=== PATIENT | female | born 1965 | race Hispanic/Latino ===

== ENCOUNTER 2018-02-27 23:13 | Emergency (ER) | payer BC ==
--- NOTE | 2018-02-27 23:58 | EDPHYS ---
Physician Documentation [facility] Name: Shilpi Jeffers Age: 52 yrs Sex: Female : 1965 Arrival Date: 02/27/2018 Time: 23:14 Bed 15 Private MD: ED Physician Ramo Thompson HPI: 02/27 23:52 This 52 yrs old Female presents to ER via Ambulatory with complaints of LT ARM jorge SWELLING. 23:52 The patient or guardian complains of decreased range of motion, pain. The complaints jorge affect the left tricep, left elbow and palmar aspect of left forearm. Context: The problem was sustained at a bite. Onset: The symptoms/episode began/occurred 2 day(s) ago. Treatment prior to arrival includes: no previous treatment. Modifying factors: The symptoms are alleviated by remaining still, the symptoms are aggravated by movement, bending arm. Associated signs and symptoms: The patient has no apparent associated signs or symptoms. Severity of symptoms: At their worst the symptoms were mild. The patient has not experienced similar symptoms in the past. 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 - Social history:: Smoking status: Patient/guardian denies using tobacco. - Ebola Screening: : No symptoms or risks identified at this time. - Family history:: not pertinent. ROS: 23:52 Constitutional: Negative for fever, chills, and weight loss, Eyes: Negative for injury, jorge pain, redness, and discharge, ENT: Negative for injury, pain, and discharge, Neck: Negative for injury, pain, and swelling, Cardiovascular: Negative for chest pain, palpitations, and edema, Respiratory: Negative for shortness of breath, cough, wheezing, and pleuritic chest pain, Abdomen/GI: Negative for abdominal pain, nausea, vomiting, diarrhea, and constipation, Back: Negative for injury and pain, : Negative for injury, bleeding, discharge, and swelling, Neuro: Negative for headache, weakness, numbness, tingling, and seizure, Psych: Negative for depression, anxiety, suicide ideation, homicidal ideation, and hallucinations, Allergy/Immunology: Negative for hives, rash, and allergies, Endocrine: Negative for neck swelling, polydipsia, polyuria, polyphagia, and marked weight changes, Hematologic/Lymphatic: Negative for swollen nodes, abnormal bleeding, and unusual bruising. 23:52 MS/extremity: Positive for erythema, pain, swelling, tenderness, warmth, of the left tricep, left elbow and palmar aspect of left forearm. Exam: 23:52 Constitutional: This is a well developed, well nourished patient who is awake, alert, jorge and in no acute distress. Head/Face: Normocephalic, atraumatic. Eyes: Pupils equal round and reactive to light, extra-ocular motions intact. Lids and lashes normal. Conjunctiva and sclera are non-icteric and not injected. Cornea within normal limits. Periorbital areas with no swelling, redness, or edema. ENT: Nares patent. No nasal discharge, no septal abnormalities noted. Tympanic membranes are normal and external auditory canals are clear. Oropharynx with no redness, swelling, or masses, exudates, or evidence of obstruction, uvula midline. Mucous membranes moist. Neck: Trachea midline, no thyromegaly or masses palpated, and no cervical lymphadenopathy. Supple, full range of motion without nuchal rigidity, or vertebral point tenderness. No Meningismus. Chest/axilla: Normal chest wall appearance and motion. Nontender with no deformity. No lesions are appreciated. Cardiovascular: Regular rate and rhythm with a normal S1 and S2. No gallops, murmurs, or rubs. Normal PMI, no JVD. No pulse deficits. Respiratory: Lungs have equal breath sounds bilaterally, clear to auscultation and percussion. No rales, rhonchi or wheezes noted. No increased work of breathing, no retractions or nasal flaring. Abdomen/GI: Soft, non-tender, with normal bowel sounds. No distension or tympany. No guarding or rebound. No evidence of tenderness throughout. Back: No spinal tenderness. No costovertebral tenderness. Full range of motion. Neuro: Awake and alert, GCS 15, oriented to person, place, time, and situation. Cranial nerves II-XII grossly intact. Motor strength 5/5 in all extremities. Sensory grossly intact. Cerebellar exam normal. Normal gait. Psych: Awake, alert, with orientation to person, place and time. Behavior, mood, and affect are within normal limits. 23:52 Skin: cellulitis, that is minimal, induration, that is mild is noted, injury, bite(s), superficial, lesion(s), are not present. Vital Signs: 23:32 BP 144 / 103; Pulse 81; Resp 18; Temp 97.8; Pulse Ox 98% on R/A; Weight 63.5 kg; Height ea 4 ft. 9 in. (144.78 cm); Pain 2/10; 23:32 Body Mass Index 30.30 (63.50 kg, 144.78 cm) ea MDM: 23:28 Patient medically screened. [facility] 23:56 Data reviewed: vital signs, nurses notes. [facility] Administered Medications: 23:59 Drug: Benadryl 25 mg Route: PO; ea 23:59 Drug: predniSONE 40 mg Route: PO; ea 23:59 Drug: Doxycycline 200 mg Route: PO; ea 23:59 Drug: Bactrim (160 mg-800 mg (DS) 1 tablet Route: PO; ea 23:59 Drug: Pepcid 40 mg Route: PO; ea Disposition: 02/27/18 23:57 Discharged to Home. Impression: Insect bite (nonvenomous) of forearm, Cellulitis and acute lymphangitis of other parts of limb. - Condition is Stable. - Discharge Instructions: Insect Bite, [id number], Insect Bite, Cellulitis, Adult, [id number]. - Prescriptions for Benadryl 25 mg Oral Capsule - take 1 capsule by ORAL route every 6 hours As needed; 30 tablet. Pepcid 20 mg Oral Tablet - take 1 tablet by ORAL route every 12 hours for 10 days; 20 tablet. Doxycycline Hyclate 100 mg Oral Tablet - take 1 tablet by ORAL route every 12 hours; 20 tablet. Bactrim DS 800- 160 mg Oral Tablet - take 1 tablet by ORAL route every 12 hours for 10 days; 20 tablet. Prednisone 20 mg Oral Tablet - take 2 tablets by ORAL route once daily for 3 days; 6 tablet. - Medication Reconciliation Form, Thank You Letter, Antibiotic Education, Prescription Opioid Use form. - Follow up: Private Physician; When: 2 - 3 days; Reason: Recheck today's complaints, Continuance of care, Re-evaluation by your physician. - Problem is new. - Symptoms have improved. Signatures: Ramo Thompson MD MD cha Antunez, Elena, RN RN ea Corrections: (The following items were deleted from the chart) 02/28 00:23 02/27 23:57 02/27/2018 23:57 Discharged to Home. Impression: Insect bite (nonvenomous) ea of forearm; Cellulitis and acute lymphangitis of other parts of limb. Condition is Stable. Forms are Medication Reconciliation Form, Thank You Letter, Antibiotic Education, Prescription Opioid Use. Follow up: Private Physician; When: 2 - 3 days; Reason: Recheck today's complaints, Continuance of care, Re-evaluation by your physician. Problem is new. Symptoms have improved. jorge
--- NOTE | 2018-02-27 23:58 | ER ---
Nurse's Notes [facility] Name: Shilpi Jeffers Age: 52 yrs Sex: Female : 1965 Arrival Date: 02/27/2018 Time: 23:14 Bed 15 Private MD: Diagnosis: Insect bite (nonvenomous) of forearm;Cellulitis and acute lymphangitis of other parts of limb Presentation: 02/27 23:32 Presenting complaint: Patient states: Swelling and redness to the left elbow that ea started yesterday, pt states "The swelling started yesterday but about an hour ago my throat felt tight and I noticed my elbow got worse" Pt denies SOB. Reports she may have been bitten by an insect. Transition of care: patient was not received from another setting of care. Onset of symptoms was February 27, 2018. Risk Assessment: Do you want to hurt yourself or someone else? Patient reports no desire to harm self or others. Initial Sepsis Screen: Does the patient meet any 2 criteria? No. Patient's initial sepsis screen is negative. Does the patient have a suspected source of infection? Yes: Other: redness and swelling noted to left elbow. Care prior to arrival: None. 23:32 Method Of Arrival: Ambulatory ea 23:32 Acuity: NIKKI 3 ea Triage Assessment: 23:37 General: Appears uncomfortable, Behavior is calm, cooperative. Pain: Complains of pain ea in left bicep, left antecubital area and dorsal aspect of left forearm Pain does not radiate. Pain currently is 2 out of 10 on a pain scale. Quality of pain is described as "tight" Pain began yesterday. EENT: No signs and/or symptoms were reported regarding the EENT system. Neuro: Level of Consciousness is awake, alert, obeys commands, Oriented to person, place, time, situation. Cardiovascular: Patient's skin is warm and dry. Respiratory: Airway is patent Respiratory effort is even, unlabored, Respiratory pattern is regular, symmetrical, Breath sounds are clear bilaterally. Denies shortness of breath. GI: No signs and/or symptoms were reported involving the gastrointestinal system. : No signs and/or symptoms were reported regarding the genitourinary system. Derm: redness and swelling noted to left elbow, forearm and upper arm. Papule noted to left elbow. 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 - Social history:: Smoking status: Patient/guardian denies using tobacco. - Ebola Screening: : No symptoms or risks identified at this time. - Family history:: not pertinent. Screenin:44 Abuse screen: Denies threats or abuse. Nutritional screening: No deficits noted. ea Tuberculosis screening: No symptoms or risk factors identified. Fall Risk None identified. Assessment: 23:32 Reassessment: see triage assessment. ea Vital Signs: 23:32 BP 144 / 103; Pulse 81; Resp 18; Temp 97.8; Pulse Ox 98% on R/A; Weight 63.5 kg; Height ea 4 ft. 9 in. (144.78 cm); Pain 2/10; 23:32 Body Mass Index 30.30 (63.50 kg, 144.78 cm) ea ED Course: 23:14 Patient arrived in ED. ds1 23:27 Ramo Thompson MD is Attending Physician. [facility] 23:32 Camille Chowdhury, MIGUEL is Primary Nurse. ea 23:32 Arm band placed on right wrist. Patient placed in an exam room, on a stretcher, on ea pulse oximetry. 23:35 Triage completed. ea 23:44 Patient has correct armband on for positive identification. Bed in low position. Call ea light in reach. Side rails up X 1. Administered Medications: 23:59 Drug: Benadryl 25 mg Route: PO; ea 23:59 Drug: predniSONE 40 mg Route: PO; ea 23:59 Drug: Doxycycline 200 mg Route: PO; ea 23:59 Drug: Bactrim (160 mg-800 mg (DS) 1 tablet Route: PO; ea 23:59 Drug: Pepcid 40 mg Route: PO; ea Outcome: 23:57 Discharge ordered by . jorge 02/28 00:23 Patient left the ED. ea Signatures: Ramo Thompson MD MD cha Sanford, Demi ds1 Camille Chowdhury, MIGUEL RN ea
[2018-02-28] MEDS ORDERED: FAMOTIDINE 20 MG TAB ONE (00:01)
[2018-02-28] MEDS ORDERED: DIPHENHYDRAMINE 25 MG TAB/CAP ONE (00:01)
[2018-02-28] MEDS ORDERED: SMZ./TMP. 800/160 MG TABLET ONE (00:01)
[2018-02-28] MEDS ORDERED: predniSONE 20 MG TAB ONE (00:01)
[2018-02-28] MEDS ORDERED: DOXYCYCLINE 100 MG CAP PO ONE (00:02)
== END 2018-02-28 00:23 | disposition home or self-care (01) ==
LOC: ER 23:13
DX: L03.114 Cellulitis of left upper limb (principal); L03.124 Acute lymphangitis of left upper limb; E78.5 Hyperlipidemia, unspecified; E03.9 Hypothyroidism, unspecified
CPT/HCPCS: 99283; J7512

== ENCOUNTER 2019-05-21 18:49 | Observation (INO) | payer BC ==
[2019-05-21 19:31] LABS: Absolute Lymphocytes (CBC) 6.7 K/uL (0.7-4.9); Hematocrit 38.4 % (36.0-45.0); Lymphocytes % 50.8 % (15.3-44.8); MPV 9.7 fL (7.6-11.3); RBC Red Blood Cell Count 4.19 M/uL (3.86-4.86)
[2019-05-21 19:34] LABS: Protime INR 0.91
[2019-05-21 19:50] LABS: ALT/SGPT 44 U/L (12-78); AST/SGOT 23 U/L (15-37); Albumin 3.8 g/dL (3.4-5.0); Alkaline Phosphatase 140 U/L (45-117); BUN Blood Urea Nitrogen 12 mg/dL (7-18); Bicarbonate 27 mmol/L (21-32); Bilirubin Direct < 0.1 mg/dL (0-0.2); Bilirubin Total 0.2 mg/dL (0.2-1.0); Glucose Level 101 mg/dL (74-106); Magnesium 2.1 mg/dL (1.8-2.4); NT PRO-BNP 84 pg/mL (<125); Potassium 3.6 mmol/L (3.5-5.1); Protein, Total 7.2 g/dL (6.4-8.2); Sodium Level 142 mmol/L (136-145); Troponin (Emerg Dept Use Only) < 0.02 ng/mL (0.0-0.045)
[2019-05-21 20:34] LABS: Blood Morphology Comment NOT SEEN (NOT SEEN); Platelet Estimate ADEQ
[2019-05-21] MEDS ORDERED: NA CHLORIDE 0.9% 1,000 ML ONE (20:51)
[2019-05-21] MEDS ORDERED: ENOXAPARIN 60 MG/0.6 ML SQ ONE (20:51)
[2019-05-21] MEDS ORDERED: ASPIRIN 81 MG CHEWABLE TABLET ONE (20:51)
[2019-05-21] MEDS ORDERED: FAMOTIDINE 20 MG/2 ML VIAL IV ONE (20:51)
--- NOTE | 2019-05-21 20:52 | EDPHYS ---
Physician Documentation [facility] Name: Shilpi Jeffers Age: 54 yrs Sex: Female : 1965 Arrival Date: 05/21/2019 Time: 18:51 Bed 4 Private MD: Ambika Shukla ED Physician Ramo Thompson HPI: 05/21 20:47 This 54 yrs old Female presents to ER via Ambulatory with complaints of Chest jorge Pain, Leg Pain. 20:47 The patient or guardian reports chest pain that is located primarily in the substernal jorge area, anterior chest wall. Onset: just prior to arrival, today. The pain does not radiate. Associated signs and symptoms: The patient has no apparent associated signs or symptoms. The chest pain is described as a heaviness, a pressure. Modifying factors: The symptoms are alleviated by nothing. the symptoms are aggravated by nothing. Severity of pain: At its worst the pain was mild in the emergency department the pain is unchanged. The patient has not experienced similar symptoms in the past. 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 - Social history:: Smoking status: Patient/guardian denies using tobacco. - Ebola Screening: : No symptoms or risks identified at this time. ROS: 20:48 Constitutional: Negative for fever, chills, and weight loss, Eyes: Negative for injury, jorge pain, redness, and discharge, ENT: Negative for injury, pain, and discharge, Neck: Negative for injury, pain, and swelling, Abdomen/GI: Negative for abdominal pain, nausea, vomiting, diarrhea, and constipation, Back: Negative for injury and pain, : Negative for injury, bleeding, discharge, and swelling, MS/Extremity: Negative for injury and deformity, Skin: Negative for injury, rash, and discoloration, Neuro: Negative for headache, weakness, numbness, tingling, and seizure, Psych: Negative for depression, anxiety, suicide ideation, homicidal ideation, and hallucinations, Allergy/Immunology: Negative for hives, rash, and allergies, Endocrine: Negative for neck swelling, polydipsia, polyuria, polyphagia, and marked weight changes. 20:48 Cardiovascular: Positive for chest pain. 20:48 Respiratory: Positive for shortness of breath. Exam: 20:48 Constitutional: This is a well developed, well nourished patient who is awake, alert, jorge and in no acute distress. Head/Face: Normocephalic, atraumatic. Eyes: Pupils equal round and reactive to light, extra-ocular motions intact. Lids and lashes normal. Conjunctiva and sclera are non-icteric and not injected. Cornea within normal limits. Periorbital areas with no swelling, redness, or edema. ENT: Nares patent. No nasal discharge, no septal abnormalities noted. Tympanic membranes are normal and external auditory canals are clear. Oropharynx with no redness, swelling, or masses, exudates, or evidence of obstruction, uvula midline. Mucous membranes moist. Neck: Trachea midline, no thyromegaly or masses palpated, and no cervical lymphadenopathy. Supple, full range of motion without nuchal rigidity, or vertebral point tenderness. No Meningismus. Chest/axilla: Normal chest wall appearance and motion. Nontender with no deformity. No lesions are appreciated. Cardiovascular: Regular rate and rhythm with a normal S1 and S2. No gallops, murmurs, or rubs. Normal PMI, no JVD. No pulse deficits. Respiratory: Lungs have equal breath sounds bilaterally, clear to auscultation and percussion. No rales, rhonchi or wheezes noted. No increased work of breathing, no retractions or nasal flaring. Abdomen/GI: Soft, non-tender, with normal bowel sounds. No distension or tympany. No guarding or rebound. No evidence of tenderness throughout. Back: No spinal tenderness. No costovertebral tenderness. Full range of motion. Skin: Warm, dry with normal turgor. Normal color with no rashes, no lesions, and no evidence of cellulitis. MS/ Extremity: Pulses equal, no cyanosis. Neurovascular intact. Full, normal range of motion. Neuro: Awake and alert, GCS 15, oriented to person, place, time, and situation. Cranial nerves II-XII grossly intact. Motor strength 5/5 in all extremities. Sensory grossly intact. Cerebellar exam normal. Normal gait. Psych: Awake, alert, with orientation to person, place and time. Behavior, mood, and affect are within normal limits. 20:48 Musculoskeletal/extremity: DVT Exam: No signs of deep vein thrombosis. no swelling, negative Homans' sign noted on exam, no appreciated bluish discoloration, no erythema, no increased warmth, pain, tenderness, of the left leg, of the left hamstring, posterior aspect of left knee and left calf. Vital Signs: 19:25 BP 154 / 91; Pulse 85; Resp 18; Temp 98(TE); Pulse Ox 100% on R/A; Weight 60.78 kg; lp1 Height 4 ft. 9 in. (144.78 cm); Pain 10/10; 20:00 BP 127 / 82; Pulse 78; Resp 16; Pulse Ox 99% on R/A; lp1 21:00 BP 133 / 83; Pulse 75; Resp 18; Pulse Ox 100% on R/A; lp1 22:00 BP 142 / 69; Pulse 82; Resp 17; Pulse Ox 100% on R/A; lp1 23:00 BP 130 / 81; Pulse 69; Resp 16; Pulse Ox 100% on R/A; lp1 19:25 Body Mass Index 29.00 (60.78 kg, 144.78 cm) lp1 MDM: 19:16 Patient medically screened. [facility] 20:49 Data reviewed: vital signs, nurses notes, lab test result(s), EKG, radiologic studies, [facility] CT scan, plain films. 05/21 19:15 Order name: Basic Metabolic Panel; Complete Time: 20:43 lp1 05/21 19:15 Order name: CBC with Diff; Complete Time: 20:43 lp1 05/21 19:15 Order name: LFT's; Complete Time: 20:43 lp1 05/21 19:15 Order name: Magnesium; Complete Time: 20:43 lp1 05/21 19:15 Order name: NT PRO-BNP; Complete Time: 20:43 lp1 05/21 19:15 Order name: PT-INR; Complete Time: 20:43 lp1 05/21 19:15 Order name: Troponin (emerg Dept Use Only); Complete Time: 20:43 lp1 05/21 19:35 Order name: Manual Differential; Complete Time: 20:43 EDMS 05/21 20:43 Order name: Lipase; Complete Time: 21:42 [facility] 05/21 20:49 Order name: TSH [facility] 05/21 21:27 Order name: Basic Metabolic Panel EDMS 05/21 21:27 Order name: Basic Metabolic Panel EDMS 05/21 21:27 Order name: CBC with Automated Diff EDMS 05/21 21:27 Order name: CBC with Automated Diff EDMS 05/21 19:15 Order name: XRAY Chest (1 view); Complete Time: 21:42 lp1 05/21 20:43 Order name: US Extremity Venous W Compression Zoltan [facility] 05/21 20:43 Order name: CT Chest For PE Angio [facility] 05/21 21:27 Order name: Echo with Doppler EDME 05/21 21:27 Order name: Lipid Profile EDME 05/21 21:27 Order name: Lipid Profile EDME 05/21 21:27 Order name: NT PRO-BNP EDME 05/21 21:27 Order name: NT PRO-BNP EDME 05/21 21:27 Order name: PTT, Activated Partial Thromb EDME 05/21 21:27 Order name: PTT, Activated Partial Thromb EDME 05/21 21:27 Order name: Troponin I EDME 05/21 21:27 Order name: Troponin I EDME 05/21 21:27 Order name: Troponin I EDME 05/21 22:26 Order name: Blood Culture Adult (2) [facility] 05/21 19:15 Order name: EKG; Complete Time: 19:17 lp1 05/21 19:15 Order name: Cardiac monitoring; Complete Time: 19:29 lp1 05/21 19:15 Order name: EKG - Nurse/Tech; Complete Time: 19:29 lp1 05/21 19:15 Order name: IV Saline Lock; Complete Time: 19:29 lp1 05/21 19:15 Order name: Labs collected and sent; Complete Time: 19:29 lp1 05/21 19:15 Order name: O2 Per Protocol; Complete Time: 19:29 lp1 05/21 19:15 Order name: O2 Sat Monitoring; Complete Time: 19:29 lp1 05/21 21:27 Order name: CONS Physician Consult EDME 05/21 21:27 Order name: EKG Electrocardiogram EDME 05/21 21:27 Order name: EKG Electrocardiogram EDME Administered Medications: 20:59 Drug: NS 0.9% 1000 ml Route: IV; Rate: 1 bolus; Site: right antecubital; lp1 23:00 Follow up: IV Status: Completed infusion; IV Intake: 1000ml lp1 20:59 Drug: Pepcid 20 mg Route: IVP; Site: right antecubital; lp1 23:26 Follow up: Response: No adverse reaction lp1 20:59 Drug: Aspirin Chewable Tablet 324 mg Route: PO; lp1 23:26 Follow up: Response: No adverse reaction lp1 20:59 Drug: Lovenox 1 mg/kg Route: Sub-Q; Site: right lower abdomen; lp1 23:26 Follow up: Response: No adverse reaction lp1 23:26 Drug: levofloxacin 500 mg Volume: 100 ml; Route: IVPB; Infused Over: 60 mins; Site: lp1 right antecubital; 23:28 Follow up: IV Status: Infusion continued upon admission lp1 Disposition: 05/21/19 20:52 Hospitalization ordered by Lucas Xiao for Inpatient Admission. Preliminary diagnosis are Other chest pain, Pain in left leg, Dyspnea. - Bed requested for Telemetry/MedSurg (Inpatient). - Status is Inpatient Admission. lp1 - Condition is Fair. - Problem is new. - Symptoms have improved. UTI on Admission? No Signatures: Dispatcher [employer] EDME Shilpi Mojica RN RN mw Anderson, Corey, MD MD cha Pena, Laura RN RN lp1 Corrections: (The following items were deleted from the chart) 21: 20:52 Hospitalization Ordered by Lucas Xiao MD for Inpatient Admission. Preliminary adilia diagnosis is Other chest pain; Pain in left leg; Dyspnea. Bed requested for Telemetry/MedSurg (Inpatient). Status is Inpatient Admission. Condition is Fair. Problem is new. Symptoms have improved. UTI on Admission? No. jorge 05/22 00:00 05/21 21:31 05/21/2019 20:52 Hospitalization Ordered by Lucas Xiao MD for Inpatient lp1 Admission. Preliminary diagnosis is Other chest pain; Pain in left leg; Dyspnea. Bed requested for Telemetry/MedSurg (Inpatient). Status is Inpatient Admission. Condition is Fair. Problem is new. Symptoms have improved. UTI on Admission? No. mw
--- NOTE | 2019-05-21 20:52 | ER ---
Nurse's Notes [facility] Name: Shilpi Jeffers Age: 54 yrs Sex: Female : 1965 Arrival Date: 05/21/2019 Time: 18:51 Bed 4 Private MD: Ambika Shukla Diagnosis: Other chest pain;Pain in left leg;Dyspnea Presentation: 05/21 19:07 Presenting complaint: Patient states: Pain to left leg for a couple weeks, worsening lp1 pain behind left calf a couple days ago, pain on movement; Chest pain that began today. Transition of care: patient was not received from another setting of care. Onset of symptoms was May 21, 2019. Risk Assessment: Do you want to hurt yourself or someone else? Patient reports no desire to harm self or others. Care prior to arrival: None. 19:07 Method Of Arrival: Ambulatory lp1 19:07 Acuity: NIKKI 3 lp1 19:28 Initial Sepsis Screen: Does the patient meet any 2 criteria? No. Patient's initial lp1 sepsis screen is negative. Does the patient have a suspected source of infection? No. Patient's initial sepsis screen is negative. 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 - Social history:: Smoking status: Patient/guardian denies using tobacco. - Ebola Screening: : No symptoms or risks identified at this time. Screenin:28 Abuse screen: Denies threats or abuse. Denies injuries from another. Nutritional lp1 screening: No deficits noted. Tuberculosis screening: No symptoms or risk factors identified. Fall Risk None identified. Assessment: 19:27 General: Appears in no apparent distress. Behavior is calm, cooperative, appropriate lp1 for age. Pain: Complains of pain in chest, posterior aspect of left knee and left calf Pain does not radiate. Pain currently is 10 out of 10 on a pain scale. Quality of pain is described as sharp, Pain began gradually. Neuro: Level of Consciousness is awake, alert, obeys commands, Oriented to person, place, time, situation. Cardiovascular: Patient's skin is warm and dry. Rhythm is sinus rhythm. Respiratory: Reports shortness of breath on exertion Airway is patent Respiratory effort is even, unlabored, Breath sounds are clear bilaterally. GI: No signs and/or symptoms were reported involving the gastrointestinal system. : No signs and/or symptoms were reported regarding the genitourinary system. EENT: No signs and/or symptoms were reported regarding the EENT system. Derm: Skin is pink, warm \T\ dry. Musculoskeletal: Circulation, motion, and sensation intact. Reports pain in posterior aspect of left knee. 20:59 Reassessment: Patient appears in no apparent distress at this time. Patient and/or lp1 family updated on plan of care and expected duration. Pain level reassessed. Patient is alert, oriented x 3, equal unlabored respirations, skin warm/dry/pink. Patient aware of pending transport to CT. 21:20 Reassessment: Patient in CT. lp1 21:50 Reassessment: Patient appears in no apparent distress at this time. Patient is alert, lp1 oriented x 3, equal unlabored respirations, skin warm/dry/pink. Patient returned from CT at this time. 23:00 Reassessment: Patient appears in no apparent distress at this time. Patient and/or lp1 family updated on plan of care and expected duration. Pain level reassessed. Patient is alert, oriented x 3, equal unlabored respirations, skin warm/dry/pink. Vital Signs: 19:25 BP 154 / 91; Pulse 85; Resp 18; Temp 98(TE); Pulse Ox 100% on R/A; Weight 60.78 kg; lp1 Height 4 ft. 9 in. (144.78 cm); Pain 10/10; 20:00 BP 127 / 82; Pulse 78; Resp 16; Pulse Ox 99% on R/A; lp1 21:00 BP 133 / 83; Pulse 75; Resp 18; Pulse Ox 100% on R/A; lp1 22:00 BP 142 / 69; Pulse 82; Resp 17; Pulse Ox 100% on R/A; lp1 23:00 BP 130 / 81; Pulse 69; Resp 16; Pulse Ox 100% on R/A; lp1 19:25 Body Mass Index 29.00 (60.78 kg, 144.78 cm) lp1 ED Course: 18:51 Patient arrived in ED. mr 18:52 Ambika Shukla is Private Physician. mr 19:07 Karyna Hinojosa, RN is Primary Nurse. lp1 19:08 Triage completed. lp1 19:15 Cardiac pain workup initiated per nursing protocol. lp1 19:16 Ramo Thompson MD is Attending Physician. jorge 19:20 Inserted saline lock: 20 gauge in right antecubital area, using aseptic technique. lp1 Blood collected. 19:20 Patient maintains SpO2 saturation greater than 95% on room air. lp1 19:28 Arm band placed on. lp1 19:29 Patient has correct armband on for positive identification. Placed in gown. Bed in low lp1 position. Call light in reach. library monitor on. Pulse ox on. NIBP on. 19:32 XRAY Chest (1 view) In Process Unspecified. EDMS 20:50 Lucas Xiao MD is Hospitalizing Provider. [facility] 21:00 No provider procedures requiring assistance completed. Patient admitted, IV remains in lp1 place. 21:28 CT Chest For PE Angio In Process Unspecified. EDMS Administered Medications: 20:59 Drug: NS 0.9% 1000 ml Route: IV; Rate: 1 bolus; Site: right antecubital; lp1 23:00 Follow up: IV Status: Completed infusion; IV Intake: 1000ml lp1 20:59 Drug: Pepcid 20 mg Route: IVP; Site: right antecubital; lp1 23:26 Follow up: Response: No adverse reaction lp1 20:59 Drug: Aspirin Chewable Tablet 324 mg Route: PO; lp1 23:26 Follow up: Response: No adverse reaction lp1 20:59 Drug: Lovenox 1 mg/kg Route: Sub-Q; Site: right lower abdomen; lp1 23:26 Follow up: Response: No adverse reaction lp1 23:26 Drug: levofloxacin 500 mg Volume: 100 ml; Route: IVPB; Infused Over: 60 mins; Site: lp1 right antecubital; 23:28 Follow up: IV Status: Infusion continued upon admission lp1 Intake: 23:00 IV: 1000ml; Total: 1000ml. lp1 Outcome: 20:52 Decision to Hospitalize by Provider. jorge 21:00 Condition: stable lp1 21:00 Instructed on the need for admit. 23:37 Admitted to Tele room 422, with chart, Report called to MIGUEL Bains lp1 05/22 00:00 Patient left the ED. lp1 Signatures: Dispatcher [employer] EDRamo Echevarria MD MD cha Rivera Laura Karyna Sandoval, MIGUEL RN lp1
--- NOTE | 2019-05-21 20:54 | RAD REPORT ---
EXAM DESCRIPTION: Tc Single View05/21/2019 7:33 pm CLINICAL HISTORY: Chest pain COMPARISON: 2017 FINDINGS: The lungs appear clear of acute infiltrate. The heart is normal size IMPRESSION: No acute abnormalities displayed
[2019-05-21] MEDS ORDERED: MORPHINE 4 MG/ML SYR IV PRN (21:21)
[2019-05-21] MEDS ORDERED: ALPRAZOLAM 0.25 MG TABLET PO PRN (21:21)
[2019-05-21] MEDS ORDERED: ACETAMINOPHEN 500 MG TAB PO PRN (21:21)
[2019-05-21] MEDS ORDERED: Levofloxacin500mg IV 500 MG/100 ML BAG IV ONE (22:41)
[2019-05-21] MEDS ORDERED: ENOXAPARIN 60 MG/0.6 ML SQ SCH (23:00)
[2019-05-22 05:24] LABS: Absolute Lymphocytes (CBC) 5.7 K/uL (0.7-4.9); Basophils % 1.5 % (0-1.3); Hematocrit 35.6 % (36.0-45.0); Lymphocytes % 52.6 % (15.3-44.8); MPV 10.5 fL (7.6-11.3); RBC Red Blood Cell Count 3.92 M/uL (3.86-4.86)
[2019-05-22 05:49] LABS: BUN Blood Urea Nitrogen 9 mg/dL (7-18); Bicarbonate 28 mmol/L (21-32); Glucose Level 99 mg/dL (74-106); NT PRO-BNP 66 pg/mL (<125); Sodium Level 141 mmol/L (136-145)
[2019-05-22 05:52] LABS: Urine Appearance CLEAR; Urine Bilirubin NEGATIVE (NEG); Urine Blood NEGATIVE (NEG); Urine Color YELLOW; Urine Glucose NEGATIVE (NEG); Urine Protein NEGATIVE (NEG); Urine Specific Gravity 1.025 (1.005-1.030); Urine Urobilinogen 0.2 mg/dL (0.2-1.0); Urine pH 6.5 (5.0-7.0)
[2019-05-22 05:59] LABS: Urine Bacteria <20 /HPF (<20); Urine Culture Reflex Order NOT NEEDED; Urine Microscopic Reflex ORDER UMIC; Urine RBC <5 /HPF (NONE SEEN)
[2019-05-22] MEDS: METOPROLOL TAR 50 MG TAB PO SCH ×2 (06:49→09:04)
--- NOTE | 2019-05-22 08:04 | RAD REPORT ---
EXAM DESCRIPTION: USExtrem Venous W Compress Bil05/21/2019 9:42 pm CLINICAL HISTORY: Bilateral leg swelling COMPARISON: none FINDINGS: The common femoral, superficial femoral, popliteal and posterior tibial veins bilaterally are compressible and demonstrate augmentation. Doppler demonstrates good flow. IMPRESSION: No evidence of deep venous thrombosis involving either lower extremity.
[2019-05-22 08:31] VITALS: BP 122/88; TEMP 97.7
--- NOTE | 2019-05-22 08:41 | P.HP ---
Certification for Inpatient Patient admitted to: Observation With expected LOS: <2 Midnights Patient will require the following post-hospital care: None Practitioner: I am a practitioner with admitting privileges, knowledge of patient current condition, hospital course, and medical plan of care. Services: Services provided to patient in accordance with Admission requirements found in Title 42 Section 412.3 of the Code of Federal Regulations Patient History Date of Service: 05/21/19 Reason for admission: Chest pain/left lower extremity pain/dyspnea History of Present Illness: Patient is a 54-year-old female came to the hospital with chest discomfort. Pain was mainly in the sternal region and it was associated with some shortness of breath. Patient's biggest complaint was pain in her left lower extremity. It she has been hurting from her knee down to her ankles. Sometimes the pain wraps from her knee around to the back. Not been able to figure out what is causing this. She was concerned she had a blood clot and she had a Doppler of her lower extremity which was negative. She has also had a CT PE protocol which did not reveal a pulmonary embolism. Patient has been having a coughing congestion and patient is on cough medication for this. Patient will need to be admitted to the hospital for further workup. Allergies NKDA Allergy (Uncoded 05/03/15 15:53) Unknown No Known Allergies Allergy (Uncoded 07/09/16 23:33) Unknown Home Medications: Atorvastatin Calcium [Lipitor] 40 mg PO DAILY 05/22/19 Levothyroxine [Synthroid] 88 mcg PO [id number] 05/22/19 Pantoprazole [Protonix Tab*] 40 mg PO [id number] 05/22/19 - Past Medical/Surgical History -: Hypothyroidism -: Dyslipidemia -: Gastroesophageal reflux disease Past Surgical History: Patient denies surgical history - Family History Father Family History: Reviewed- Non-Contributory - Social History Smoking Status: Former smoker Alcohol use: No CD- Drugs: No Review of Systems 10-point ROS is otherwise unremarkable Physical Examination - Vital Signs Temperature: 97.7 F Blood Pressure: 122/88 Pulse: 69 Respirations: 16 Pulse Ox (%): 99 - Physical Exam General: Alert, In no apparent distress, Oriented x3 HEENT: Atraumatic, PERRLA, Mucous membr. moist/pink, EOMI, Sclerae nonicteric Neck: Supple, 2+ carotid pulse no bruit, No LAD, Without JVD or thyroid abnormality Respiratory: Clear to auscultation bilaterally, Normal air movement Cardiovascular: Regular rate/rhythm, Normal S1 S2, No murmurs Gastrointestinal: Normal bowel sounds, Soft and benign, Non-distended, No tenderness Musculoskeletal: No contractures, No erythema, Tenderness (From the left knee down to the ankle but this is not reproducible) Integumentary: No rashes Neurological: Normal gait, Normal speech, Normal strength at 5/5 x4 extr, Normal tone, Sensation intact, Cranial nerves 3-12 intact, Normal affect Lymphatics: No axilla or inguinal lymphadenopathy - Studies Laboratory Data (last 24 hrs) 05/21/19 19:20: Lipase 183 05/21/19 19:20: PT 10.8, INR 0.91 05/21/19 19:20: WBC 13.2 H, Hgb 12.6, Hct 38.4, Plt Count 259 05/21/19 19:20: Sodium 142, Potassium 3.6, BUN 12, Creatinine 0.80, Glucose 101 , Magnesium 2.1, Total Bilirubin 0.2, AST 23, ALT 44, Alkaline Phosphatase 140 H Assessment & Plan - Problems (Diagnosis) (1) Chest pain, rule out acute myocardial infarction Current Visit: Yes Status: Acute (2) Dyspnea Current Visit: Yes Status: Acute (3) Hypothyroidism Current Visit: Yes Status: Acute (4) Gastroesophageal reflux disease Current Visit: Yes Status: Acute (5) Paresthesia of left lower extremity Current Visit: Yes Status: Acute - Plan 1. Serial troponins and EKG 2. Cardiology consultation 3. Echocardiogram and stress test as an outpatient 4. Anti-platelet therapy, anti coagulation, beta-oren, statin, and O2 as needed 5. IV morphine for pain 6. Nitro p.r.n. 7. Patient with Doppler of the leg which was negative and a CT PE protocol which was unremarkable as well. 8. Pain control 9. GI and DVT prophylaxis - Advance Directives Does patient have a Living Will: No Does patient have a Durable POA for Healthcare: No - Code Status/Comfort Care Code Status Assessed: Yes Code Status: Full Code Critical Care: No Time Spent Managing PTS Care (In Minutes): 45
--- NOTE | 2019-05-22 08:42 | P.DS ---
Discharge Date: 05/22/19 Disposition: ROUTINE DISCHARGE Discharge Condition: GOOD Reason for Admission: Chest pain/left lower extremity pain/dyspnea - Problems (1) Chest pain, rule out acute myocardial infarction Current Visit: Yes Status: Acute (2) Dyspnea Current Visit: Yes Status: Acute (3) Hypothyroidism Current Visit: Yes Status: Acute (4) Gastroesophageal reflux disease Current Visit: Yes Status: Acute (5) Paresthesia of left lower extremity Current Visit: Yes Status: Acute Brief History of Present Illness: Patient is a 54-year-old female came to the hospital with chest discomfort. Pain was mainly in the sternal region and it was associated with some shortness of breath. Patient's biggest complaint was pain in her left lower extremity. It she has been hurting from her knee down to her ankles. Sometimes the pain wraps from her knee around to the back. Not been able to figure out what is causing this. She was concerned she had a blood clot and she had a Doppler of her lower extremity which was negative. She has also had a CT PE protocol which did not reveal a pulmonary embolism. Patient has been having a coughing congestion and patient is on cough medication for this. Patient will need to be admitted to the hospital for further workup. Hospital Course: Patient's workup was unremarkable. Patient is clinically doing well. At this time, patient is stable for discharge home with outpatient follow-up with PCP and further testing with Cardiology including stress testing. Vital Signs/Physical Exam: Temp Pulse Resp BP Pulse Ox 97.7 F 69 16 122/88 99 05/22/19 08:41 05/22/19 08:41 05/22/19 08:41 05/22/19 08:41 05/22/19 08:41 General: Alert, In no apparent distress, Oriented x3 Laboratory Data at Discharge: WBC 10.8 K/uL (4.3-10.9) D 05/22/19 04:49 Hgb 12.1 g/dL (12.0-15.0) 05/22/19 04:49 Hct 35.6 % (36.0-45.0) L 05/22/19 04:49 Plt Count 271 K/uL (152-406) 05/22/19 04:49 PT 10.8 SECONDS (9.5-12.5) 05/21/19 19:20 INR 0.91 05/21/19 19:20 APTT 36.9 SECONDS (24.3-36.9) 05/22/19 04:49 Sodium 141 mmol/L (136-145) 05/22/19 04:49 Potassium 4.0 mmol/L (3.5-5.1) 05/22/19 04:49 BUN 9 mg/dL (7-18) 05/22/19 04:49 Creatinine 0.63 mg/dL (0.55-1.3) 05/22/19 04:49 Glucose 99 mg/dL (74-106) 05/22/19 04:49 Magnesium 2.1 mg/dL (1.8-2.4) 05/21/19 19:20 Total Bilirubin 0.2 mg/dL (0.2-1.0) 05/21/19 19:20 AST 23 U/L (15-37) 05/21/19 19:20 ALT 44 U/L (12-78) 05/21/19 19:20 Alkaline Phosphatase 140 U/L (45-117) H 05/21/19 19:20 Troponin I < 0.02 ng/mL (0.0-0.045) 05/22/19 04:49 Triglycerides 121 mg/dL (<150) 05/22/19 04:49 Cholesterol 130 mg/dL (<200) 05/22/19 04:49 HDL Cholesterol 38 mg/dL (40-60) L 05/22/19 04:49 Cholesterol/HDL Ratio 3.42 05/22/19 04:49 Lipase 183 U/L (73-393) 05/21/19 19:20 Home Medications: Atorvastatin Calcium [Lipitor] 40 mg PO DAILY 05/22/19 Levothyroxine [Synthroid] 88 mcg PO [id number] 05/22/19 Pantoprazole [Protonix Tab*] 40 mg PO [id number] 05/22/19 Patient Discharge Instructions: OK TO DC IV AND DC HOME. FOLLOW-UP WITH PRIMARY CARE PROVIDER IN 1-2 WEEKS. FOLLOW-UP WITH CARDIOLOGY IN 1-2 WEEKS. RETURN TO THE ER IF. CALL or TEXT DR. MOREL AT [phone] IF ANY QUESTIONS REGARDING HOSPITAL STAY. PLEASE CALL THE FLOOR AT [phone] IF ANY MEDICATION OR NURSING QUESTIONS.
[2019-05-22] MEDS ORDERED: PREGABALIN 75 MG CAP PO SCH (09:00)
[2019-05-22] MEDS ORDERED: ATORVASTATIN 40 MG TAB PO SCH (09:00)
[2019-05-22] MEDS ORDERED: ASPIRIN EC 81 MG TAB PO SCH (09:00)
[2019-05-22] MEDS ORDERED: ENOXAPARIN 60 MG/0.6 ML SQ SCH (09:00)
[2019-05-22 09:07] VITALS: BMI 29.0
[2019-05-22 10:37] VITALS: O2SAT 99
--- NOTE | 2019-05-22 15:32 | EKG ---
Test Date: 2019-05-21 Test Time: 19:22:26 Deicer Inspector Electric: GRISELDA MEASUREMENT RESULTS: Intervals: Rate: 74 CA: 144 QRSD: 74 QT: 388 QTc: 430 Ayr: P: 51 CA: 144 QRS: 57 T: 46 INTERPRETIVE STATEMENTS: Normal sinus rhythm Nonspecific ST abnormality Abnormal ECG Compared to ECG 04/16/2013 10:18:30 ST (T wave) deviation now present Electronically Signed On 05-22-19 15:30:54 STRUCTURES ENGINEER by Eugene Mann
[2019-05-23] MEDS ORDERED: LEVOTHYROXINE SOD 0.088 MG TAB PO SCH (06:00)
[2019-05-23] MEDS ORDERED: PANTOPRAZOLE 40MG TABLET PO SCH (06:00)
--- NOTE | 2019-05-24 11:36 | RAD REPORT ---
EXAM DESCRIPTION: CT - Chest For Pe Angio - 05/21/2019 11:20 pm CLINICAL HISTORY: CHEST PAIN TECHNIQUE: Contiguous axial images obtained through the chest during angiographic phase following th e uneventful administration of IV contrast. Sagittal and coronal reformatted images were provided. WI P reformatted images were provided. This exam was performed according to our departmental dose-optimization program, which includes autom ated exposure control, adjustment of the mA and/or kV according to patient size and/or use of iterati ve reconstruction technique. COMPARISON: No prior exams provided for comparison. FINDINGS: Diagnostic quality: There is good opacification of the pulmonary arterial tree. Lungs: Diffuse mosaic attenuation within the lungs bilaterally. Airways are patent. Pleura: No effusion. No pneumothorax. Heart and pericardium: The heart is normal in size. No pericardial effusion. Mediastinum and aftab: No pathologically enlarged lymph nodes. Lower neck and chest wall: Unremarkable Vessels: No pulmonary arterial filling defects. Minimal atherosclerotic disease. No thoracic aortic a neurysm. Upper abdomen: Unremarkable Bones: Multilevel spondylosis. No acute fracture. IMPRESSION: 1. No pulmonary embolic disease. 2. Diffuse mosaic attenuation within the lungs bilaterally. Differential considerations include sma ll airways disease, small vessel disease and interstitial infiltrates. 3. Other findings as above. Electronically signed by: Freddy Tijerina MD 05/21/2019 9:39 PM SUPERVISOR [employer] Due to temporary technical issues with the PACS/Fluency reporting system, reports are being signed by the in house radiologist as a courtesy to ensure prompt reporting. The interpreting radiologist is f ully responsible for the content of the report.
== END 2019-05-22 11:13 | disposition home or self-care (01) ==
LOC: ER 18:49 → ERHOLD 21:22 → 4TH 23:37
PROVIDERS: ADMIT Hospitalist; ATTEND Hospitalist
DX: R07.9 Chest pain, unspecified (principal); R06.00 Dyspnea, unspecified; E03.9 Hypothyroidism, unspecified; K21.9 Gastro-esophageal reflux disease without esophagitis; R20.2 Paresthesia of skin
CPT/HCPCS: 96361; 93005; 87040 ×2; 85025 ×2; 80048 ×2; 36415; 83735; 85610; 80061; 80076; 85730; 84443; 84484 ×3; 83690; 83880 ×2; 71275; 71045; 93970; 96375; 96372; 96374; 99285; Q9967; J1650; J7030; G0378 ×2; 81003; 81015

== ENCOUNTER 2021-06-11 10:51 | Emergency (ER) | payer BC ==
[2021-06-11] MEDS ORDERED: ACETAMINOPHEN 500 MG TAB ONE (11:21)
[2021-06-11 12:57] LABS: SARS-COV-2 RT PCR POSITIVE (NEGATIVE)
--- NOTE | 2021-06-11 13:01 | ER ---
Nurse's Notes [facility] Name: Shilpi Jeffers Age: 56 yrs Sex: Female : 1965 Arrival Date: 06/11/2021 Time: 10:53 Bed Waiting Private MD: Ambika Shukla Diagnosis: Coronavirus infection, unspecified Presentation: 06/11 11:08 Chief complaint: Patient states: Fever, sore throat, body aches for 2 days. Coronavirus ll1 screen: Vaccine status: Patient reports being unvaccinated. Client denies travel out of the [place] in the last 14 days. congestion, cough unrelated to allergies, fatigue, fever, headache, sore throat, Client presents with at least one sign or symptom that may indicate coronavirus-19. Standard/surgical mask placed on the client. Ebola Screen: Patient denies travel to an Ebola-affected area in the 21 days before illness onset. Initial Sepsis Screen: Does the patient meet any 2 criteria? HR > 90 bpm. No. Patient's initial sepsis screen is negative. Does the patient have a suspected source of infection? Yes: Productive cough/pneumonia. Risk Assessment: Do you want to hurt yourself or someone else? Patient reports no desire to harm self or others. Onset of symptoms was June 10, 2021. 11:08 Method Of Arrival: Ambulatory ll1 11:08 Acuity: NIKKI 4 ll1 Triage Assessment: 11:11 General: Appears ill, Behavior is calm, cooperative, appropriate for age. Pain: ll1 Complains of pain in body Quality of pain is described as aching. EENT: Nares are clear Throat is reddened Reports pain when swallowing. Neuro: No deficits noted. Cardiovascular: No deficits noted. Respiratory: Reports cough that is the patient has mild shortness of breath. Musculoskeletal: Circulation, motion, and sensation intact. Capillary refill < 3 seconds, Reports body aches. 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 - Social history:: Smoking status: Patient denies any tobacco usage or history of. Screenin:36 Abuse screen: Denies threats or abuse. Nutritional screening: No deficits noted. ll1 Tuberculosis screening: No symptoms or risk factors identified. 11:36 Fall Risk Total Parmar Fall Scale indicates No Risk (0-24 pts). ll1 Assessment: 12:10 Reassessment: No changes from previously documented assessment. Patient and/or family ll1 updated on plan of care and expected duration. Pain level reassessed. Patient is alert, oriented x 3, equal unlabored respirations, skin warm/dry/pink. 13:10 Reassessment: No changes from previously documented assessment. Patient and/or family ll1 updated on plan of care and expected duration. Pain level reassessed. Patient is alert, oriented x 3, equal unlabored respirations, skin warm/dry/pink. Vital Signs: 11:08 BP 143 / 83; Pulse 120; Resp 17; Temp 99.4; Pulse Ox 96% on R/A; Weight 63.5 kg; Height ll1 4 ft. 9 in. (144.78 cm); Pain 10/10; 13:12 BP 135 / 88; Pulse 105; Resp 18; Temp 98.8; ll1 11:08 Body Mass Index 30.29 (63.50 kg, 144.78 cm) ll1 ED Course: 10:53 Patient arrived in ED. mr 10:53 Ambika Shukla is Private Physician. mr 11:07 Melody Kaur FNP-C is [facility]. kb 11:07 Rohit Somers MD is Attending Physician. kb 11:10 Triage completed. ll1 11:11 Arm band placed on. ll1 11:36 Patient has correct armband on for positive identification. Cardiac monitoring not ll1 applicable on this patient. 13:13 No provider procedures requiring assistance completed. Patient did not have IV access ll1 during this emergency room visit. Administered Medications: 11:20 Drug: Tylenol 1000 mg Route: PO; ll1 13:13 Follow up: Response: No adverse reaction ll1 Outcome: 13:01 Discharge ordered by . kb 13:13 Discharged to home ambulatory. ll1 13:13 Condition: stable 13:13 Discharge instructions given to patient, Instructed on discharge instructions, follow up and referral plans. medication usage, Demonstrated understanding of instructions, follow-up care, medications, Prescriptions given X 1. 13:13 Patient left the ED. ll1 Signatures: Melody Kaur, [employer] STEEL TESTER-Laura Alva mr Davina Jade, RN RN ll1 Corrections: (The following items were deleted from the chart) 11:11 11:08 Pulse 126bpm; Resp 17bpm; Pulse Ox 96% RA; Temp 99.4F; 63.5 kg; Height 4 ft. 9 ll1 in.; BMI: 30.3; Pain 03/11; ll1
--- NOTE | 2021-06-11 13:02 | EDPHYS ---
Physician Documentation [facility] Name: Shilpi Jeffers Age: 56 yrs Sex: Female : 1965 Arrival Date: 06/11/2021 Time: 10:53 Bed Waiting Private MD: Ambika Shukla ED Physician Rohit Somers HPI: 06/11 16:03 This 56 yrs old Female presents to ER via Ambulatory with complaints of Flu kb Symptoms. 16:03 The patient or guardian reports cough, that is intermittent, described as mild, flu kb symptoms, low-grade fever, myalgias. Onset: The symptoms/episode began/occurred yesterday. Severity of symptoms: At their worst the symptoms were moderate, in the emergency department the symptoms are unchanged. Modifying factors: The symptoms are alleviated by nothing, the symptoms are aggravated by nothing. Associated signs and symptoms: Pertinent positives: fever, rhinorrhea, sore throat, Pertinent negatives: chest pain, diarrhea, ear ache, nausea, vomiting. The patient has not experienced similar symptoms in the past. The patient has not recently seen a physician. Pt reports fever, chills, bodyaches, sore throat, cough, congestion since yesterday. 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 - Social history:: Smoking status: Patient denies any tobacco usage or history of. ROS: 16:03 Abdomen/GI: Negative for abdominal pain, nausea, vomiting, diarrhea, and constipation. kb 16:03 Constitutional: Positive for body aches, chills, fatigue, fever, malaise. 16:03 ENT: Positive for rhinorrhea, sinus congestion, sore throat. 16:03 Respiratory: Positive for cough. 16:03 All other systems are negative. Exam: 16:03 Constitutional: This is a well developed, well nourished patient who is awake, alert, kb and in no acute distress. Head/Face: Normocephalic, atraumatic. ENT: Moist Mucous membranes Cardiovascular: Regular rate and rhythm with a normal S1 and S2. No gallops, murmurs, or rubs. No pulse deficits. Respiratory: Respirations even and unlabored. No increased work of breathing. Talking in full sentences Skin: Warm, dry with normal turgor. Normal color. MS/ Extremity: Pulses equal, no cyanosis. Neurovascular intact. Full, normal range of motion. Neuro: Awake and alert, GCS 15, oriented to person, place, time, and situation. Moves all extremities. Normal gait. Psych: Awake, alert, with orientation to person, place and time. Behavior, mood, and affect are within normal limits. Vital Signs: 11:08 BP 143 / 83; Pulse 120; Resp 17; Temp 99.4; Pulse Ox 96% on R/A; Weight 63.5 kg; Height ll1 4 ft. 9 in. (144.78 cm); Pain 03/11; 13:12 BP 135 / 88; Pulse 105; Resp 18; Temp 98.8; ll1 11:08 Body Mass Index 30.29 (63.50 kg, 144.78 cm) ll1 MDM: 11:12 Patient medically screened. kb 16:04 Data reviewed: vital signs, nurses notes. Data interpreted: Pulse oximetry: on room air kb is 96 %. Interpretation: normal. Counseling: I had a detailed discussion with the patient and/or guardian regarding: the historical points, exam findings, and any diagnostic results supporting the discharge/admit diagnosis, lab results, the need for outpatient follow up, a family practitioner, to return to the emergency department if symptoms worsen or persist or if there are any questions or concerns that arise at home. 06/11 11:10 Order name: Strep; Complete Time: 11:50 kb 06/11 11:10 Order name: COVID-19/FLU A+B (Document "Date of Onset" if Symptomatic); Complete Time: kb 12:58 06/11 11:49 Order name: Throat Culture EDMS Administered Medications: 11:20 Drug: Tylenol 1000 mg Route: PO; ll1 13:13 Follow up: Response: No adverse reaction ll1 Disposition: 16:28 Co-signature as Attending Physician, Rohit Somers MD I agree with the assessment and rn plan of care. Attestation: The patient's history, exam findings, diagnostics, and a summary of any interventions or procedures was reviewed in detail with Melody VILLATORO. Disposition Summary: 06/11/21 13:01 Discharge Ordered Location: Home kb Condition: Stable kb Diagnosis - Coronavirus infection, unspecified kb Followup: kb - With: Emergency Department - When: As needed - Reason: Worsening of condition Followup: kb - With: Private Physician - When: 2 - 3 days - Reason: Recheck today's complaints, Continuance of care, Re-evaluation by your physician Discharge Instructions: - Discharge Summary Sheet kb - Viral Respiratory Infection, [id number] kb - COVID-19 kb Forms: - Medication Reconciliation Form kb - Thank You Letter kb - Antibiotic Education kb - Prescription Opioid Use kb - Work release form ll1 Prescriptions: - Tessalon Perles 100 mg Oral Capsule - take 1 capsule by ORAL route every 8 hours As needed; 15 capsule; Refills: 0, kb Product Selection Permitted Signatures: Dispatcher [employer] Melody Warren, IRVING PORTILLOP-Rohit Ramos MD MD rn Lewis, Lynsay, RN RN 1
[2021-06-11 13:41] VITALS: O2SAT 96
[2021-06-11 13:44] VITALS: BP 135/88; TEMP 98.8
== END 2021-06-11 13:13 | disposition home or self-care (01) ==
LOC: ER 10:51
DX: U07.1 COVID-19 (principal); K21.9 Gastro-esophageal reflux disease without esophagitis; E78.5 Hyperlipidemia, unspecified; E03.9 Hypothyroidism, unspecified
CPT/HCPCS: 87070; 87081; 0240U; 99283

== ENCOUNTER → 2023-05-30 | Emergency (ER) | payer BC ==
[~2023-05-30] MED LIST: LIDOCAINE 1% MPF 5 ML VIAL ONE
--- NOTE | 2023-05-30 13:36 | ER ---
Nurse's Notes [facility] Name: Shilpi Jeffers Age: 58 yrs Sex: Female : 1965 Arrival Date: 05/30/2023 Time: 12:35 Bed 12 Private MD: Diagnosis: Cutaneous abscess of left upper limb;Cellulitis of finger Presentation: 05/30 12:44 Chief complaint: Abscess on left 5th finger x 1 week. Coronavirus screen: At this time, hb the client does not indicate any symptoms associated with coronavirus-19. Ebola Screen: No symptoms or risks identified at this time. Initial Sepsis Screen: Does the patient meet any 2 criteria? No. Patient's initial sepsis screen is negative. Does the patient have a suspected source of infection? No. Patient's initial sepsis screen is negative. Risk Assessment: Do you want to hurt yourself or someone else? Patient reports no desire to harm self or others. Onset of symptoms was May 23, 2023. 12:44 Method Of Arrival: Ambulatory hb 12:44 Acuity: NIKKI 4 hb Triage Assessment: 12:45 General: Appears in no apparent distress. Behavior is calm, cooperative. Pain: Pain hb currently is 1 out of 10 on a pain scale. EENT: No signs and/or symptoms were reported regarding the EENT system. Neuro: Level of Consciousness is awake, alert, obeys commands, Oriented to person, place, time, situation. Cardiovascular: Patient's skin is warm and dry. Respiratory: Respiratory effort is even, unlabored, Respiratory pattern is regular, symmetrical. GI: No signs and/or symptoms were reported involving the gastrointestinal system. : No signs and/or symptoms were reported regarding the genitourinary system. Derm: Skin is pink, warm \T\ dry. Abscess located on dorsal aspect of proximal phalanx of left little finger is dime sized, is red, is raised. Musculoskeletal: No signs and/or symptoms reported regarding the musculoskeletal system. Historical: - Allergies: 12:45 No Known Allergies; hb - Home Meds: 12:45 atorvastatin 40 mg Oral tab 1 tab once daily [Active]; pantoprazole 40 mg Oral TbEC 1 hb tab once daily [Active]; - PMHx: 12:45 Hyperlipidemia; GERD; Hypothyroidism; hb - PSHx: 12:45 section; Cholecystectomy; Appendectomy; hb - Immunization history:: Adult Immunizations up to date. - Social history:: Smoking status: Patient denies any tobacco usage or history of. Screenin:46 [facility] ED Fall Risk Assessment (Adult) Score/Fall Risk Level 0 - 2 = Low Risk hb Oriented to surroundings, Maintained a safe environment, Educated pt \T\ family on fall prevention, incl call for assistance when getting out of bed. Abuse screen: Denies threats or abuse. Denies injuries from another. Nutritional screening: No deficits noted. Tuberculosis screening: No symptoms or risk factors identified. Assessment: 12:46 General: See triage assessment.. hb Vital Signs: 12:44 BP 164 / 83; Pulse 83; Resp 16; Temp 97.9(TE); Pulse Ox 98% on R/A; Weight 63.5 kg; hb Height 4 ft. 9 in. ; Pain 1/10; 12:44 Body Mass Index 30.30 (63.50 kg, 144.78 cm) hb 12:44 Pain Scale: Adult hb ED Course: 12:38 Patient arrived in ED. ts1 12:39 Omar Edwards MD is Attending Physician. ec2 12:45 Triage completed. hb 12:46 Arm band placed on. hb 12:46 Patient has correct armband on for positive identification. Provided Education on: hb procedure. 12:46 No provider procedures requiring assistance completed. Patient did not have IV access hb during this emergency room visit. 14:16 Bettie Barney, RN is Primary Nurse. iw Administered Medications: No medications were administered Medication: 12:46 VIS not applicable for this client. hb Outcome: 13:35 Discharge ordered by . ec2 14:16 Patient left the ED. iw Signatures: Bettie Barney, MIGUEL RIVERA iw Laura Conte RN RN hb Pat Frazier PAS PAS ts1 Omar Edwards MD MD ec2
--- NOTE | 2023-05-30 13:36 | EDPHYS ---
Physician Documentation [facility] Name: Shilpi Jeffres Age: 58 yrs Sex: Female : 1965 Arrival Date: 05/30/2023 Time: 12:35 Bed 12 Private MD: ED Physician Omar Edwards HPI: 05/30 13:33 This 58 yrs old Female presents to ER via Ambulatory with complaints of Insect ec2 Bite. 13:33 Patient arrives today due to concern for soft tissue swelling of the left pinky finger. ec2 Patient reports swelling to the area, noted a white spot and is concerned that she was bitten by a bug. Patient reports no fevers or chills, no nausea or vomiting.. Historical: - Allergies: 12:45 No Known Allergies; hb - Home Meds: 12:45 atorvastatin 40 mg Oral tab 1 tab once daily [Active]; pantoprazole 40 mg Oral TbEC 1 hb tab once daily [Active]; - PMHx: 12:45 Hyperlipidemia; GERD; Hypothyroidism; hb - PSHx: 12:45 section; Cholecystectomy; Appendectomy; hb - Immunization history:: Adult Immunizations up to date. - Social history:: Smoking status: Patient denies any tobacco usage or history of. ROS: 13:33 Constitutional: as per hpi ec2 Exam: 13:33 Constitutional: GEN: NAD Head: atraumatic Eyes: EOMI Ears: External ears are ec2 normal. CV: regular rate LUNGS: no respiratory distress ABD: non-distended SKIN: Small 1 x 1 cm abscess noted on the dorsal aspect of the left pinky finger, surrounding erythema and warmth appreciated. MSK: no evidence of trauma NEURO: moves all extremities equally Vital Signs: 12:44 BP 164 / 83; Pulse 83; Resp 16; Temp 97.9(TE); Pulse Ox 98% on R/A; Weight 63.5 kg; hb Height 4 ft. 9 in. ; Pain 1/; 12:44 Body Mass Index 30.30 (63.50 kg, 144.78 cm) hb 12:44 Pain Scale: Adult hb Procedures: 13:33 I \T\ D: Incision and drainage was performed for an abscess of the left Prepped with ec2 alcohol, Anesthetized with 5 ml's 1% Lidocaine. Incised with #11 blade. Drained small amount purulent fluid. Dressing: sterile 4x4 gauze, the patient tolerated the procedure well. MDM: 12:41 Patient medically screened. ec2 13:33 Data reviewed: vital signs. ED course: Patient arrives today for soft tissue swelling ec2 of the left pinky finger. I performed an incision and drainage without issue, was able to remove purulent discharge. Does have surrounding erythema so we will treat for cellulitis. Presentation consistent with cellulitis and abscess. Return precautions given. Will start on antibiotics.. Administered Medications: No medications were administered Disposition Summary: 05/30/23 13:35 Discharge Ordered Notes: Location: Home ec2 Condition: Stable ec2 Diagnosis - Cutaneous abscess of left upper limb ec2 - Cellulitis of finger ec2 Followup: ec2 - With: Private Physician - When: - Reason: Recheck today's complaints Discharge Instructions: - Discharge Summary Sheet ec2 Forms: - Work release form iw - Medication Reconciliation Form ec2 - Thank You Letter ec2 - Antibiotic Education ec2 - Prescription Opioid Use ec2 - Patient Portal Instructions ec2 - Leadership Thank You Letter ec2 Prescriptions: - Doxycycline Hyclate 100 mg Oral tablet - take 1 tablet ORAL route every 12 hours; 14 tablet; Refills: 0, Product ec2 Selection Permitted Signatures: Laura Conte RN RN Omar Edwards MD MD ec2
[2023-05-30 14:27] VITALS: BP 164/83; TEMP 97.9; O2SAT 98
== END ==
LOC: ER 12:35
PROC: 0H9GXZZ Drainage of Left Hand Skin, External Approach (ICD-10-PCS; principal; 2023-05-30)
DX: L02.512 Cutaneous abscess of left hand (principal); L03.012 Cellulitis of left finger
CPT/HCPCS: 99281; 10060; J2001